=== PATIENT | female | born 1940 | race Caucasian/White ===

== ENCOUNTER 2017-06-08 08:01 | Inpatient (IN) | payer MEDICARE, MEDICAID ==
[2017-06-08] VITALS (37 sets, daily range): BP systolic 124–178; BP diastolic 36–88
[~2017-06-08] VITALS: Ht 144.8 cm; Wt 70.5 kg
[~2017-06-08 08:01] MED LIST: ASPI-986 PO; METF-517 PO; ROSU20TA PO
[2017-06-08] MEDS ORDERED: MIDAZOLAM HCL 2 MG/2 ML VIAL ONE (10:03)
[2017-06-08] MEDS ORDERED: FENTANYL CITRATE/PF 50MCG/ML 2ML VIAL ONE (10:03)
[2017-06-08] MEDS ORDERED: IODIXANOL 320MG/ML 100 ML BOTTLE IV ONE (10:03)
[2017-06-08] MEDS ORDERED: LIDOCAINE HCL/PF 1% 10 MG/ML 5ML VIAL ONE (10:04)
[2017-06-08] MEDS ORDERED: ALEN70TA3 PO (10:11)
[2017-06-08] MEDS ORDERED: LIP40 PO (10:11)
[2017-06-08] MEDS ORDERED: CARV6.2548 PO (10:11)
[2017-06-08] MEDS ORDERED: SACU1TAB4 PO (10:11)
[2017-06-08] MEDS ORDERED: IOVERSOL 240MG/ML 100ML BOTTLE IV ONE (10:27)
[2017-06-08] MEDS ORDERED: CLOPIDOGREL 75MG TABLET ONE (11:00)
[2017-06-08] MEDS ORDERED: HYDRALAZINE 20MG/ML VIAL ONE (11:13)
[2017-06-08] MEDS ORDERED: CLOPIDOGREL 75MG TABLET PO ONE (11:30)
[2017-06-08] MEDS ORDERED: DEXTROSE 50% WATER 50ML SYRINGE IV PRN (11:30)
[2017-06-08] MEDS ORDERED: ONDANSETRON HCL 4MG/2ML VIAL IV PRN ×2 (11:30→12:30)
[2017-06-08] MEDS ORDERED: MORPHINE SULFATE 4 MG/ML CPJ (NOT FOR IM USE) IV PRN (11:30)
[2017-06-08] MEDS ORDERED: ATROPINE SULFATE 1MG/10ML SYR IV PRN (11:30)
[2017-06-08] MEDS ORDERED: ACETAMINOPHEN 325MG TABLET PO PRN (11:30)
[2017-06-08] MEDS: BLOOD SUGAR DIAGNOSTIC STRIP TEST SCH ×3 (12:02→21:29)
[2017-06-08] MEDS: LOSARTAN POTASSIUM 50 MG TABLET PO SCH ×2 (12:10→21:37)
[2017-06-08] MEDS: CLOPIDOGREL 75MG TABLET PO SCH (12:10)
[2017-06-08] MEDS: ASPIRIN 325MG TABLET PO SCH (12:10)
[2017-06-08] MEDS ORDERED: SODIUM CHLORIDE 0.45% 1,000 ML IV SCH (12:15)
[2017-06-08] MEDS ORDERED: CLONIDINE 0.1MG TABLET PO PRN (12:30)
[2017-06-08] MEDS: INSULIN LISPRO 100 UNITS/ML SUBCUT SCH ×3 (13:00→21:36)
[2017-06-08] MEDS ORDERED: HEPARIN SODIUM 1,000 UNIT/1ML VIAL IV ONE (14:55)
[2017-06-08] MEDS: CARVEDILOL 6.25 MG TABLET PO SCH (21:37)
[2017-06-09] VITALS (13 sets, daily range): BP systolic 119–181; BP diastolic 42–90
[2017-06-09] MEDS: BLOOD SUGAR DIAGNOSTIC STRIP TEST SCH (06:01)
[2017-06-09 06:44] LABS: BASOPHILS % 0.2 % (0.0-2.0); HEMATOCRIT. 34.9 % (36.0-48.0); HEMOGLOBIN. 11.7 g/dL (12.0-16.0); LYMPHOCYTES % 33.7 % (20.0-50.0); MEAN CORPUSCULAR VOLUME 92.8 fL (81.0-99.0); MEAN PLATELET VOLUME 9.5 fl (7.4-10.4); MONOCYTES % 6.3 % (2.0-8.0); NEUTROPHILS % 59.8 % (40.0-76.0); PLATELET 145 x1000/uL (130-400); RED BLOOD CELL COUNT 3.76 mill/uL (4.2-5.4); RED CELL DISTRIBUTION WIDTH 13.5 % (11.6-14.6)
[2017-06-09] MEDS: INSULIN LISPRO 100 UNITS/ML SUBCUT SCH (07:20)
[2017-06-09] MEDS: ASPIRIN 325MG TABLET PO SCH (08:34)
[2017-06-09] MEDS: LOSARTAN POTASSIUM 50 MG TABLET PO SCH (08:34)
[2017-06-09] MEDS: CARVEDILOL 6.25 MG TABLET PO SCH (08:34)
[2017-06-09] MEDS: CLOPIDOGREL 75MG TABLET PO SCH (08:43)
[2017-06-09 09:38] LABS: CHLORIDE 109 mEq/L (98-107)
== END 2017-06-09 11:36 | disposition home or self-care (01) | DRG 254 ==
LOC: CCL 08:01 → 3WST 08:02
PROVIDERS: ADMIT Specialist; ATTEND Specialist
PROC: B41G1ZZ Fluoroscopy of Left Lower Extremity Arteries using Low Osmolar Contrast (ICD-10-PCS; principal; 2017-06-08)
PROC: 047Q3ZZ Dilation of Left Anterior Tibial Artery, Percutaneous Approach (ICD-10-PCS; 2017-06-08)
PROC: B4171ZZ Fluoroscopy of Left Renal Artery using Low Osmolar Contrast (ICD-10-PCS; 2017-06-08)
PROC: B41F1ZZ Fluoroscopy of Right Lower Extremity Arteries using Low Osmolar Contrast (ICD-10-PCS; 2017-06-08)
PROC: 047U3ZZ Dilation of Left Peroneal Artery, Percutaneous Approach (ICD-10-PCS; 2017-06-08)
DX: E11.51 Type 2 diabetes mellitus with diabetic peripheral angiopathy without gangrene (principal); I11.0 Hypertensive heart disease with heart failure; I50.9 Heart failure, unspecified; I25.5 Ischemic cardiomyopathy; I25.10 Atherosclerotic heart disease of native coronary artery without angina pectoris; E78.5 Hyperlipidemia, unspecified; Y83.8 Other surgical procedures as the cause of abnormal reaction of the patient, or of later complication, without mention of misadventure at the time of the procedure; Z79.82 Long term (current) use of aspirin; Z82.49 Family history of ischemic heart disease and other diseases of the circulatory system; Z95.810 Presence of automatic (implantable) cardiac defibrillator; Z83.3 Family history of diabetes mellitus; Z79.899 Other long term (current) drug therapy; Y92.89 Other specified places as the place of occurrence of the external cause
CPT/HCPCS: 36251; 36415; 37228; 37232; 75710; 80048; 82962; 85025; 85347; 85730; 93005; C1725; C1726; C1769; C1893; C1894; J0360; J1644; J1815; J2250; J2405; J3010; J3490; J7030; Q9967

== ENCOUNTER 2017-11-23 20:30 | Inpatient (IN) | payer MEDICARE, MEDICAID ==
[~2017-11-23] VITALS: Ht 152.4 cm; Wt 65.5 kg
[~2017-11-23 20:30] MED LIST changes: +ALEN70TA3 PO; +ASPI-1159 PO; -ASPI-986 PO; +CARV6.2548 PO; +GLIP5TAB12 PO; +IBUP-1653 PO; +LIP40 PO; +OXYB5TAB11 PO; +SACU1TAB4 PO; +SACU1TAB7 PO
[2017-11-23 21:00] VITALS: BP 145/59
[2017-11-23] MEDS ORDERED: DEXTROSE 50% WATER 50ML SYRINGE IV PRN (21:45)
[2017-11-23] MEDS ORDERED: MECLIZINE 25MG TABLET PO PRN (22:00)
[2017-11-23] MEDS ORDERED: IPRATROPIUM/ALBUTEROL 0.5-3(2.5)MG/3ML NEB HHN PRN (22:00)
[2017-11-23] MEDS ORDERED: MAGNESIUM/ALUMINUM HYDROXIDE/SIMETHICONE 30ML UDC PO PRN (22:00)
[2017-11-23] MEDS ORDERED: CLONIDINE 0.1MG TABLET PO PRN (22:00)
[2017-11-23] MEDS ORDERED: ONDANSETRON HCL 4MG/2ML INJ IV PRN (22:00)
[2017-11-23] MEDS ORDERED: GUAIFENESIN-DM 200MG-20MG/10ML UDC PO PRN (22:00)
[2017-11-23] MEDS ORDERED: DIPHENHYDRAMINE 50MG/ML VIAL IV PRN (22:00)
[2017-11-23] MEDS ORDERED: ACETAMINOPHEN 325MG TABLET PO PRN (22:00)
[2017-11-23] MEDS ORDERED: METOCLOPRAMIDE HCL 10MG/2ML VIAL IV PRN (22:00)
[2017-11-23] MEDS: AMLODIPINE 5MG TABLET PO SCH (22:49)
[2017-11-23] MEDS: MECLIZINE 25MG TABLET PO SCH (22:49)
[2017-11-23] MEDS: CARVEDILOL 12.5MG TABLET PO SCH (22:50)
[2017-11-23] MEDS: BLOOD SUGAR DIAGNOSTIC STRIP TEST SCH (22:50)
[2017-11-23] MEDS: INSULIN LISPRO 100 UNITS/ML SUBCUT SCH (22:52)
[2017-11-23 23:19] VITALS: BP 145/59
[2017-11-24] MEDS: MECLIZINE 25MG TABLET PO SCH ×3 (06:09→21:27)
[2017-11-24] MEDS: INSULIN LISPRO 100 UNITS/ML SUBCUT SCH ×4 (06:09→21:36)
[2017-11-24] MEDS: BLOOD SUGAR DIAGNOSTIC STRIP TEST SCH ×4 (06:09→21:27)
[2017-11-24 08:00] VITALS: BP 144/62
[2017-11-24 08:17] LABS: BASOPHILS % 0.4 % (0.0-2.0); HEMATOCRIT. 39.6 % (36.0-48.0); HEMOGLOBIN. 13.2 g/dL (12.0-16.0); LYMPHOCYTES % 43.7 % (20.0-50.0); MEAN CORPUSCULAR VOLUME 93.4 fL (81.0-99.0); MEAN PLATELET VOLUME 9.4 fl (7.4-10.4); MONOCYTES % 6.8 % (2.0-8.0); NEUTROPHILS % 49.1 % (40.0-76.0); PLATELET 129 x1000/uL (130-400); RED BLOOD CELL COUNT 4.24 mill/uL (4.2-5.4); RED CELL DISTRIBUTION WIDTH 14.6 % (11.6-14.6)
[2017-11-24] MEDS: AMLODIPINE 5MG TABLET PO SCH ×2 (09:01→21:27)
[2017-11-24] MEDS: CARVEDILOL 12.5MG TABLET PO SCH ×2 (09:01→21:00)
[2017-11-24] MEDS: ENOXAPARIN 40MG/0.4ML SYR SUBCUT SCH (09:03)
[2017-11-24] MEDS: POTASSIUM CHLORIDE 20MEQ TABLET SR PO SCH (09:03)
[2017-11-24 10:30] LABS: CHLORIDE 108 mEq/L (98-107)
[2017-11-24] MEDS: LINAGLIPTIN 5MG TABLET PO SCH (12:16)
[2017-11-24] MEDS: METFORMIN HCL 500MG TABLET PO SCH (16:22)
[2017-11-24 19:52] LABS: CLARITY URINE CLEAR (CLEAR); COLOR URINE YELLOW (YELLOW); KETONES URINE NEGATIVE (NEGATIVE); LEUKOCYTE ESTERASE URINE TRACE (NEGATIVE); NITRITE URINE NEGATIVE (NEGATIVE); OCCULT BLOOD URINE NEGATIVE (NEGATIVE); PH URINE 5.5 (4.5-8.0); PROTEIN URINE NEGATIVE (NEGATIVE); SPECIFIC GRAVITY URINE 1.006 (1.005-1.030); UROBILINOGEN URINE 0.2 E.U./dL (0.2-1.0)
[2017-11-24 20:00] VITALS: BP 124/50
[2017-11-24] MEDS: DOCUSATE SODIUM 100MG CAPSULE PO PRN (21:37)
[2017-11-25] MEDS: PANTOPRAZOLE 40MG DR TABLET PO SCH (06:29)
[2017-11-25] MEDS: MECLIZINE 25MG TABLET PO SCH ×3 (06:30→22:32)
[2017-11-25] MEDS: INSULIN LISPRO 100 UNITS/ML SUBCUT SCH ×4 (06:30→21:51)
[2017-11-25] MEDS: BLOOD SUGAR DIAGNOSTIC STRIP TEST SCH ×4 (06:30→21:47)
[2017-11-25 07:29] LABS: BASOPHILS % 0.4 % (0.0-2.0); HEMATOCRIT. 38.7 % (36.0-48.0); HEMOGLOBIN. 13.2 g/dL (12.0-16.0); LYMPHOCYTES % 36.1 % (20.0-50.0); MEAN CORPUSCULAR HEMOGLOBIN 31.7 pg (28.0-32.0); MEAN CORPUSCULAR VOLUME 92.8 fL (81.0-99.0); MEAN PLATELET VOLUME 9.6 fl (7.4-10.4); MONOCYTES % 5.6 % (2.0-8.0); NEUTROPHILS % 57.9 % (40.0-76.0); PLATELET 129 x1000/uL (130-400); RED BLOOD CELL COUNT 4.17 mill/uL (4.2-5.4); RED CELL DISTRIBUTION WIDTH 14.7 % (11.6-14.6)
[2017-11-25] MEDS ORDERED: LACTULOSE 20G/30ML UDC PO SCH (07:30)
[2017-11-25 08:00] VITALS: BP 121/50
[2017-11-25] MEDS: LINAGLIPTIN 5MG TABLET PO SCH (08:51)
[2017-11-25] MEDS: METFORMIN HCL 500MG TABLET PO SCH ×2 (08:51→16:36)
[2017-11-25] MEDS: AMLODIPINE 5MG TABLET PO SCH ×2 (08:51→21:00)
[2017-11-25] MEDS: CARVEDILOL 12.5MG TABLET PO SCH ×2 (08:51→21:00)
[2017-11-25] MEDS: POTASSIUM CHLORIDE 20MEQ TABLET SR PO SCH (09:00)
[2017-11-25] MEDS: ENOXAPARIN 40MG/0.4ML SYR SUBCUT SCH (09:05)
[2017-11-25] MEDS: LOSARTAN POTASSIUM 25 MG TABLET PO SCH (10:39)
[2017-11-25] MEDS ORDERED: DEXTROSE 50% WATER 50ML SYRINGE IV PRN (14:00)
[2017-11-25] MEDS ORDERED: BLOOD SUGAR DIAGNOSTIC STRIP TEST SCH (17:00)
[2017-11-25 20:00] VITALS: BP 127/44
[2017-11-25 23:54] LABS: CLARITY URINE CLEAR (CLEAR); COLOR URINE YELLOW (YELLOW); KETONES URINE NEGATIVE (NEGATIVE); LEUKOCYTE ESTERASE URINE NEGATIVE (NEGATIVE); NITRITE URINE NEGATIVE (NEGATIVE); OCCULT BLOOD URINE NEGATIVE (NEGATIVE); PROTEIN URINE NEGATIVE (NEGATIVE); SPECIFIC GRAVITY URINE 1.014 (1.005-1.030); UROBILINOGEN URINE 0.2 E.U./dL (0.2-1.0)
[2017-11-26] MEDS: MECLIZINE 25MG TABLET PO SCH ×3 (06:31→21:05)
[2017-11-26] MEDS: PANTOPRAZOLE 40MG DR TABLET PO SCH (06:31)
[2017-11-26] MEDS: BLOOD SUGAR DIAGNOSTIC STRIP TEST SCH ×4 (06:32→20:49)
[2017-11-26 06:55] LABS: BASOPHILS % 0.3 % (0.0-2.0); HEMATOCRIT. 37.5 % (36.0-48.0); HEMOGLOBIN. 12.8 g/dL (12.0-16.0); LYMPHOCYTES % 34.1 % (20.0-50.0); MEAN CORPUSCULAR HEMOGLOBIN 31.7 pg (28.0-32.0); MEAN PLATELET VOLUME 9.8 fl (7.4-10.4); MONOCYTES % 6.5 % (2.0-8.0); NEUTROPHILS % 59.1 % (40.0-76.0); PLATELET 138 x1000/uL (130-400); RED BLOOD CELL COUNT 4.03 mill/uL (4.2-5.4); RED CELL DISTRIBUTION WIDTH 14.7 % (11.6-14.6)
[2017-11-26] MEDS: INSULIN LISPRO 100 UNITS/ML SUBCUT SCH ×4 (07:01→21:07)
[2017-11-26 08:00] VITALS: BP 126/55
[2017-11-26] MEDS: METFORMIN HCL 500MG TABLET PO SCH ×2 (08:10→17:02)
[2017-11-26] MEDS: ENOXAPARIN 40MG/0.4ML SYR SUBCUT SCH (08:10)
[2017-11-26] MEDS: LINAGLIPTIN 5MG TABLET PO SCH (08:10)
[2017-11-26] MEDS: AMLODIPINE 5MG TABLET PO SCH ×2 (08:11→20:46)
[2017-11-26] MEDS: LOSARTAN POTASSIUM 25 MG TABLET PO SCH (08:11)
[2017-11-26] MEDS: CARVEDILOL 12.5MG TABLET PO SCH ×2 (08:14→20:46)
[2017-11-26 10:02] LABS: FOLIC ACID (FOLATE) SERUM 11.2 ng/mL (>5.38)
[2017-11-26] MEDS: FERROUS SULFATE 325MG TABLET PO SCH (17:02)
[2017-11-26 20:00] VITALS: BP 127/49
[2017-11-27] MEDS: DOCUSATE SODIUM 100MG CAPSULE PO PRN (05:49)
[2017-11-27] MEDS: MECLIZINE 25MG TABLET PO SCH ×3 (05:49→21:29)
[2017-11-27] MEDS: BLOOD SUGAR DIAGNOSTIC STRIP TEST SCH ×4 (06:18→21:28)
[2017-11-27] MEDS: FAMOTIDINE 20MG TABLET PO SCH (06:19)
[2017-11-27] MEDS: INSULIN LISPRO 100 UNITS/ML SUBCUT SCH ×4 (06:55→21:00)
[2017-11-27 08:00] VITALS: BP 119/53
[2017-11-27] MEDS: METFORMIN HCL 500MG TABLET PO SCH ×2 (08:33→17:14)
[2017-11-27] MEDS: FERROUS SULFATE 325MG TABLET PO SCH ×3 (08:33→17:14)
[2017-11-27] MEDS: LOSARTAN POTASSIUM 25 MG TABLET PO SCH (08:33)
[2017-11-27] MEDS: ENOXAPARIN 40MG/0.4ML SYR SUBCUT SCH (08:33)
[2017-11-27] MEDS: LINAGLIPTIN 5MG TABLET PO SCH (08:33)
[2017-11-27] MEDS: CYANOCOBALAMIN 1000MCG/ML VIAL IM SCH (08:33)
[2017-11-27] MEDS: CARVEDILOL 12.5MG TABLET PO SCH ×2 (08:36→21:30)
[2017-11-27] MEDS: AMLODIPINE 5MG TABLET PO SCH ×2 (08:37→21:30)
[2017-11-27 20:45] VITALS: BP 137/45
[2017-11-28] MEDS: FAMOTIDINE 20MG TABLET PO SCH (06:06)
[2017-11-28] MEDS: BLOOD SUGAR DIAGNOSTIC STRIP TEST SCH ×4 (06:07→21:20)
[2017-11-28] MEDS: INSULIN LISPRO 100 UNITS/ML SUBCUT SCH ×4 (06:07→21:00)
[2017-11-28] MEDS: MECLIZINE 25MG TABLET PO SCH ×3 (06:07→21:19)
[2017-11-28 08:00] VITALS: BP 136/62
[2017-11-28] MEDS: LINAGLIPTIN 5MG TABLET PO SCH (08:41)
[2017-11-28] MEDS: METFORMIN HCL 500MG TABLET PO SCH ×2 (08:41→17:47)
[2017-11-28] MEDS: LOSARTAN POTASSIUM 25 MG TABLET PO SCH (08:41)
[2017-11-28] MEDS: FERROUS SULFATE 325MG TABLET PO SCH ×3 (08:41→17:46)
[2017-11-28] MEDS: ENOXAPARIN 40MG/0.4ML SYR SUBCUT SCH (08:41)
[2017-11-28] MEDS: CYANOCOBALAMIN 1000MCG/ML VIAL IM SCH (08:41)
[2017-11-28] MEDS: AMLODIPINE 5MG TABLET PO SCH ×2 (08:44→21:19)
[2017-11-28] MEDS: CARVEDILOL 12.5MG TABLET PO SCH ×2 (08:45→21:18)
[2017-11-28] MEDS: LACTULOSE 20G/30ML UDC PO SCH ×3 (10:32→17:00)
[2017-11-28 20:00] VITALS: BP 151/67
[2017-11-28] MEDS ORDERED: LACTULOSE 20G/30ML UDC PO PRN (21:00)
[2017-11-29] MEDS: FAMOTIDINE 20MG TABLET PO SCH (06:03)
[2017-11-29] MEDS: MECLIZINE 25MG TABLET PO SCH (06:03)
[2017-11-29] MEDS: BLOOD SUGAR DIAGNOSTIC STRIP TEST SCH ×4 (06:04→21:40)
[2017-11-29] MEDS: INSULIN LISPRO 100 UNITS/ML SUBCUT SCH ×4 (06:09→21:00)
[2017-11-29 06:55] LABS: BASOPHILS % 0.2 % (0.0-2.0); HEMATOCRIT. 37.4 % (36.0-48.0); HEMOGLOBIN. 12.6 g/dL (12.0-16.0); LYMPHOCYTES % 47.4 % (20.0-50.0); MEAN CORPUSCULAR HEMOGLOBIN 31.2 pg (28.0-32.0); MEAN CORPUSCULAR VOLUME 92.6 fL (81.0-99.0); MEAN PLATELET VOLUME 9.8 fl (7.4-10.4); MONOCYTES % 6.8 % (2.0-8.0); NEUTROPHILS % 45.6 % (40.0-76.0); PLATELET 128 x1000/uL (130-400); RED BLOOD CELL COUNT 4.04 mill/uL (4.2-5.4); RED CELL DISTRIBUTION WIDTH 14.3 % (11.6-14.6)
[2017-11-29 07:52] VITALS: BP 136/51
[2017-11-29] MEDS: LOSARTAN POTASSIUM 25 MG TABLET PO SCH (08:36)
[2017-11-29] MEDS: METFORMIN HCL 500MG TABLET PO SCH ×2 (08:36→16:39)
[2017-11-29] MEDS: LINAGLIPTIN 5MG TABLET PO SCH (08:36)
[2017-11-29] MEDS: FERROUS SULFATE 325MG TABLET PO SCH ×3 (08:36→16:39)
[2017-11-29] MEDS: CYANOCOBALAMIN 1000MCG/ML VIAL IM SCH (08:36)
[2017-11-29] MEDS: ENOXAPARIN 40MG/0.4ML SYR SUBCUT SCH (08:36)
[2017-11-29] MEDS: AMLODIPINE 5MG TABLET PO SCH ×2 (08:37→20:49)
[2017-11-29] MEDS: CARVEDILOL 12.5MG TABLET PO SCH ×2 (08:38→20:49)
[2017-11-29 20:00] VITALS: BP 152/57
[2017-11-30] MEDS: FAMOTIDINE 20MG TABLET PO SCH (06:22)
[2017-11-30] MEDS: INSULIN LISPRO 100 UNITS/ML SUBCUT SCH (06:23)
[2017-11-30] MEDS: BLOOD SUGAR DIAGNOSTIC STRIP TEST SCH ×2 (06:23→11:09)
[2017-11-30 08:00] VITALS: BP 154/65
[2017-11-30] MEDS: LINAGLIPTIN 5MG TABLET PO SCH (08:37)
[2017-11-30] MEDS: FERROUS SULFATE 325MG TABLET PO SCH (08:37)
[2017-11-30] MEDS: METFORMIN HCL 500MG TABLET PO SCH (08:37)
[2017-11-30] MEDS: LOSARTAN POTASSIUM 25 MG TABLET PO SCH (08:38)
[2017-11-30] MEDS: ENOXAPARIN 40MG/0.4ML SYR SUBCUT SCH (08:38)
[2017-11-30] MEDS: AMLODIPINE 5MG TABLET PO SCH (08:38)
[2017-11-30] MEDS: CYANOCOBALAMIN 1000MCG/ML VIAL IM SCH (08:38)
[2017-11-30] MEDS: CARVEDILOL 12.5MG TABLET PO SCH (08:38)
[2017-11-30 11:24] VITALS: BP 154/65
[2017-12-02 17:11] LABS: 25-HYDROXY VITAMIN D3 16 ng/mL (.)
[2017-12-10] MEDS ORDERED: CYANOCOBALAMIN 1000MCG/ML VIAL IM SCH (09:00)
== END 2017-11-30 12:05 | disposition home health service (06) | DRG 947 ==
PROVIDERS: ADMIT Physical Medicine & Rehabilitation Spinal Cord Injury Medicine; ATTEND Specialist
DX: R53.81 Other malaise (principal); I50.23 Acute on chronic systolic (congestive) heart failure; R47.01 Aphasia; I69.354 Hemiplegia and hemiparesis following cerebral infarction affecting left non-dominant side; G95.89 Other specified diseases of spinal cord; I67.1 Cerebral aneurysm, nonruptured; R13.10 Dysphagia, unspecified; R47.1 Dysarthria and anarthria; R26.9 Unspecified abnormalities of gait and mobility; I11.0 Hypertensive heart disease with heart failure; I25.5 Ischemic cardiomyopathy; E78.00 Pure hypercholesterolemia, unspecified; D69.6 Thrombocytopenia, unspecified; I65.22 Occlusion and stenosis of left carotid artery; R42 Dizziness and giddiness; I16.0 Hypertensive urgency; R11.2 Nausea with vomiting, unspecified; E78.5 Hyperlipidemia, unspecified; I25.10 Atherosclerotic heart disease of native coronary artery without angina pectoris; E11.65 Type 2 diabetes mellitus with hyperglycemia; E61.1 Iron deficiency; R06.02 Shortness of breath; J98.4 Other disorders of lung; E53.8 Deficiency of other specified B group vitamins; G31.84 Mild cognitive impairment of uncertain or unknown etiology; E11.51 Type 2 diabetes mellitus with diabetic peripheral angiopathy without gangrene; Z95.810 Presence of automatic (implantable) cardiac defibrillator; Z79.84 Long term (current) use of oral hypoglycemic drugs; Z95.5 Presence of coronary angioplasty implant and graft; Z95.820 Peripheral vascular angioplasty status with implants and grafts
CPT/HCPCS: 36415; 80048; 82306; 82607; 82728; 82746; 82962; 83036; 83540; 83550; 83735; 84100; 84134; 84443; 84630; 87077; 92523; 92610; 93970; 97110; 97112; 97116; 97163; 97166; 97530; 97535; G0515; J1650; J1815; J3420; J8597; A4315